=== PATIENT | female | born 1990 | race Caucasian/White ===

== ENCOUNTER 2020-01-21 11:58 | Emergency (ER) | payer MEDICAID ==
[~2020-01-21] VITALS: Ht 162.6 cm; Wt 56.7 kg
[2020-01-21 12:20] VITALS: Ht 162.6 cm; Wt 56.7 kg
[2020-01-21 18:58] VITALS: BP 124/72
== END 2020-01-21 18:58 | disposition home or self-care (01) ==
LOC: ED 11:58
DX: K56.41 Fecal impaction (principal); Z98.890 Other specified postprocedural states